=== PATIENT | female | born 1975 | race Caucasian/White ===

== ENCOUNTER 2019-02-15 21:09 | Emergency (ER) | payer SELFPAY ==
[~2019-02-15] VITALS: Ht 162.6 cm; Wt 59.1 kg
[2019-02-15 21:30] VITALS: Ht 162.6 cm; Wt 59.1 kg
[2019-02-15] MEDS ORDERED: TOPAMAX50 MG PO (22:09)
[2019-02-15] MEDS ORDERED: PHENERGAN25 M1 PO (22:09)
[2019-02-16 00:02] VITALS: BP 118/68
== END 2019-02-16 00:03 | disposition home or self-care (01) ==
LOC: D.ER 21:09
DX: G43.909 Migraine, unspecified, not intractable, without status migrainosus (principal); R51 Headache; R11.2 Nausea with vomiting, unspecified; K21.9 Gastro-esophageal reflux disease without esophagitis